=== PATIENT | male | born 1960 | race Two or more races ===

== ENCOUNTER 2020-10-17 14:48 | Inpatient (IN) | payer OTHER ==
[2020-10-17 15:55] VITALS: BMI 27.9
[2020-10-17] MEDS ORDERED: MENTHOL/PHENOL 1 EACH UD MM PRN (16:14)
[2020-10-17] MEDS ORDERED: NICOTINE POLACRILEX 2 MG GUM BUC PRN (16:14)
[2020-10-17] MEDS ORDERED: METHOCARBAMOL 500 MG TABLET PO PRN (16:14)
[2020-10-17] MEDS ORDERED: MAG HYDROX/AL HYDROX/SIMETH 30 ML UNIT-DOSE CUP PO PRN (16:14)
[2020-10-17] MEDS ORDERED: diazePAM 5 MG TABLET PO PRN (16:14)
[2020-10-17] MEDS ORDERED: ACETAMINOPHEN 325 MG TABLET (FP) PO PRN ×2 (16:14)
[2020-10-17] MEDS ORDERED: IBUPROFEN 400 MG TABLET (FP) PO PRN (16:14)
[2020-10-17] MEDS ORDERED: MAGNESIUM CITRATE 300 ML BOTTLE PO PRN (16:14)
[2020-10-17] MEDS ORDERED: BISMUTH SUBSALICYLATE 524 MG/30 ML PO PRN (16:14)
[2020-10-17] MEDS ORDERED: MAGNESIUM HYDROX 2400MG/30ML ORAL SUSPENSION 30 ML CUP PO PRN (16:14)
[2020-10-17] MEDS ORDERED: ONDANSETRON *ODT* 4 MG TABLET SL PRN (16:14)
[2020-10-17] MEDS: diazePAM 5 MG TABLET PO SCH ×2 (19:20→22:37)
[2020-10-17] MEDS: hydrOXYzine PAMOATE 25 MG CAPSULE (FP) PO SCH ×2 (19:21→22:37)
[2020-10-17] MEDS: MELATONIN 5 MG TABLETS PO SCH (22:37)
[2020-10-17] MEDS: THIAMINE HCL 100 MG TABLET (FP) PO SCH (22:37)
[2020-10-18] MEDS: hydrOXYzine PAMOATE 25 MG CAPSULE (FP) PO SCH ×2 (06:17→11:03)
[2020-10-18] MEDS: diazePAM 5 MG TABLET PO SCH ×4 (06:18→22:52)
[2020-10-18] MEDS: PRENATAL VITAMINS W/ FOLIC ACID TABLET (FP) PO SCH (11:03)
[2020-10-18 11:24] LABS: HEMATOCRIT 34.8 % (35.4-49); HEMOGLOBIN 11.7 GM/dL (11.7-16.9); MCH 29.4 pg (25.7-33.7); MCHC 33.5 g/dl (32.0-35.9); MEAN CELL VOLUME 87.9 fl (80-96); MEAN PLT VOLUME 8.5 fl (7.5-11.1); PLATELET COUNT 112 K/MM3 (134-434); RBC 3.96 M/mm3 (4.00-5.60); RDW 16.8 % (11.9-15.9); WHITE BLOOD COUNT 3.2 K/mm3 (4.0-10.0)
[2020-10-18 12:01] LABS: BLOOD UREA NITROGEN 8.1 mg/dL (7-18); CALCIUM 9.3 mg/dL (8.5-10.1)
[2020-10-18 12:02] LABS: TOT PROT 6.9 g/dl (6.4-8.2)
[2020-10-18 12:03] LABS: ALBUMIN 3.3 g/dl (3.4-5.0)
[2020-10-18 12:05] LABS: CREATININE 0.6 mg/dL (0.55-1.3)
[2020-10-18] MEDS: hydrOXYzine PAMOATE 25 MG CAPSULE (FP) PO PRN ×2 (18:26→22:53)
[2020-10-18] MEDS: THIAMINE HCL 100 MG TABLET (FP) PO SCH (22:52)
[2020-10-18] MEDS: MELATONIN 5 MG TABLETS PO SCH (22:53)
[2020-10-19] MEDS: diazePAM 5 MG TABLET PO SCH ×3 (06:19→22:19)
[2020-10-19] MEDS: PRENATAL VITAMINS W/ FOLIC ACID TABLET (FP) PO SCH (10:36)
[2020-10-19] MEDS: THIAMINE HCL 100 MG TABLET (FP) PO SCH (22:18)
[2020-10-19] MEDS: MELATONIN 5 MG TABLETS PO SCH (22:18)
[2020-10-20] MEDS: diazePAM 5 MG TABLET PO SCH ×2 (05:41→18:05)
[2020-10-20] MEDS: PRENATAL VITAMINS W/ FOLIC ACID TABLET (FP) PO SCH (10:44)
[2020-10-20 13:24] VITALS: TEMP 97.1
[2020-10-20 14:06] LABS: SARS-CoV-2 NAA Not Detected (Not Detected)
[2020-10-20] MEDS: MELATONIN 5 MG TABLETS PO SCH (23:11)
[2020-10-20] MEDS: THIAMINE HCL 100 MG TABLET (FP) PO SCH (23:11)
[2020-10-21] MEDS: hydrOXYzine PAMOATE 25 MG CAPSULE (FP) PO PRN (02:38)
[2020-10-21] MEDS ORDERED: diazePAM 5 MG TABLET PO ONE (06:00)
[2020-10-21 09:30] VITALS: BP 127/88; PULSE 102
[2020-10-21] MEDS: PRENATAL VITAMINS W/ FOLIC ACID TABLET (FP) PO SCH (10:24)
== END 2020-10-21 12:43 | disposition home or self-care (01) | DRG 775 ==
LOC: YASAS 14:48 → Y3N 16:42
PROVIDERS: ADMIT Allergy & Immunology; ATTEND Allergy & Immunology
PROC: HZ2ZZZZ Detoxification Services for Substance Abuse Treatment (ICD-10-PCS; principal; 2020-10-17)
DX: F10.230 Alcohol dependence with withdrawal, uncomplicated (principal); F32.9 Major depressive disorder, single episode, unspecified; M17.0 Bilateral primary osteoarthritis of knee
CPT/HCPCS: 36415; 80053; 85027; 86780; C9803; U0003; U0005